=== PATIENT | male | born 1955 | race Caucasian/White ===

== ENCOUNTER 2021-07-07 17:05 | Inpatient (IN) | payer MEDICAID, SELFPAY ==
[~2021-07-07] VITALS: Ht 172.7 cm; Wt 93.3 kg
[2021-07-07] MEDS ORDERED: DexAMETHasone SOD PHOS 10MG/1ML VIAL INJ IV ONE (17:45)
[2021-07-07] MEDS ORDERED: cefTRIAXone 1GM/50ML D5W 50 ML IV ONE (17:45)
[2021-07-07 18:49] LABS: Basophils # (auto) 0.2 10 ^3/uL (0-0.2); Basophils % (auto) 2.6 % (0.0-2.0); Eosinophils # (auto) 0 10 ^3/uL (0-0.8); Hematocrit 49.5 % (41.0-53.0); Hemoglobin 16.8 g/dL (13.5-17.5); Lymphocytes # (auto) 0.6 10 ^3/uL (0.4-5.4); Lymphocytes % (auto) 8.8 % (10.0-50.0); Mean Corpuscular Hemoglobin 30.8 pg (28.0-32.0); Mean Corpuscular Hgb Conc. 33.9 g/dL (32.0-36.0); Mean Corpuscular Volume 90.9 fL (80.0-100.0); Monocytes # (auto) 0.5 10 ^3/uL (0-1.3); Monocytes % (auto) 7.7 % (0.0-12.0); Neutrophils # (auto) 5.6 10 ^3/uL (1.6-8.6); Neutrophils % (auto) 80.9 % (37.0-80.0); Nucleated Red Blood Cells % 0.2 %; Red Blood Cells 5.45 10^6/uL (4.5-5.90); Red Cell Distribution Width 13.4 % (11.8-14.3); White Blood Cell 6.9 10^3/uL (4.4-10.8)
[2021-07-07 19:05] LABS: Calcium 8.2 mg/dL (8.5-10.1); Chloride 102 mmol/L (98-107); Potassium 3.9 mmol/L (3.5-5.1); Sodium 135 mmol/L (136-145)
[2021-07-07 19:15] LABS: Alanine Aminotransferase 59 U/L (16-61); Albumin 2.8 g/dL (3.4-5.0); Alkaline Phosphatase 128 U/L (45-117); Anion Gap 11 (5-15); Aspartate Aminotransferase 55 U/L (15-37); BUN/Creatinine Ratio 20.4; Bilirubin, Total 1.2 mg/dL (0.2-1.0); Blood Urea Nitrogen 22 mg/dL (7-18); CRP High Sensitivity 4.29 mg/dL (< 0.3); Carbon Dioxide 22 mmol/L (21-32); GFR African American 89 mL/min; GFR Non-African American 73 mL/min; Glucose 95 mg/dL (74-106); Total Protein 7.2 g/dL (6.4-8.2)
[2021-07-07] MEDS ORDERED: TEMAZEPAM 15 MG CAP PO PRN (21:15)
[2021-07-07] MEDS ORDERED: NITROGLYCERIN 0.4 MG SL TAB SL PRN (21:15)
[2021-07-07] MEDS ORDERED: ONDANSETRON HCL 4 MG/2 ML VIAL IV PRN (21:15)
[2021-07-07] MEDS ORDERED: MORPHINE SULFATE INJECTION 2 MG/ML SYRG IV PRN (21:15)
[2021-07-07] MEDS ORDERED: AZITHROMYCIN 500MG/ 250ML 250 ML IV ONE (21:15)
[2021-07-07] MEDS ORDERED: ACETAMINOPHEN 500 MG TAB PO PRN (21:15)
[2021-07-07] MEDS: ENOXAPARIN SOD 40 MG/0.4 ML SYRINGE SC SCH (21:40)
[2021-07-08 00:38] VITALS: BP 125/71
[2021-07-08 05:15] LABS: Basophils # (auto) 0 10 ^3/uL (0-0.2); Basophils % (auto) 0.2 % (0.0-2.0); Eosinophils # (auto) 0 10 ^3/uL (0-0.8); Hematocrit 44.9 % (41.0-53.0); Hemoglobin 15.6 g/dL (13.5-17.5); Lymphocytes # (auto) 0.4 10 ^3/uL (0.4-5.4); Lymphocytes % (auto) 8.9 % (10.0-50.0); Mean Corpuscular Hemoglobin 31.4 pg (28.0-32.0); Mean Corpuscular Hgb Conc. 34.8 g/dL (32.0-36.0); Mean Corpuscular Volume 90.4 fL (80.0-100.0); Monocytes # (auto) 0.3 10 ^3/uL (0-1.3); Monocytes % (auto) 7.7 % (0.0-12.0); Neutrophils # (auto) 3.6 10 ^3/uL (1.6-8.6); Neutrophils % (auto) 83.2 % (37.0-80.0); Red Blood Cells 4.96 10^6/uL (4.5-5.90); Red Cell Distribution Width 12.8 % (11.8-14.3); White Blood Cell 4.3 10^3/uL (4.4-10.8)
[2021-07-08 05:26] LABS: Albumin 2.5 g/dL (3.4-5.0); Calcium 8.1 mg/dL (8.5-10.1); Potassium 3.9 mmol/L (3.5-5.1)
[2021-07-08 05:31] LABS: BUN/Creatinine Ratio 20.8; Bilirubin, Total 0.7 mg/dL (0.2-1.0); Total Protein 6.7 g/dL (6.4-8.2)
[2021-07-08] MEDS: DexAMETHasone SOD PHOS 10MG/1ML VIAL INJ IV SCH (09:34)
[2021-07-08] MEDS: ZINC SULFATE 220mg CAP or TAB PO SCH (09:34)
[2021-07-08] MEDS: ASCORBIC ACID 1,000 MG TAB PO SCH (09:34)
[2021-07-08] MEDS: ENOXAPARIN SOD 40 MG/0.4 ML SYRINGE SC SCH ×2 (09:35→22:55)
[2021-07-08] MEDS: CHOLECALCIFEROL (VITD3) 2,000 UNIT CAP/TAB PO SCH (09:35)
[2021-07-08] MEDS ORDERED: DexAMETHasone SOD PHOS 10MG/1ML VIAL INJ IV SCH (10:00)
[2021-07-08] MEDS ORDERED: POTASSIUM CHL 10 Meq TABLET PO ONE ×2 (16:00→17:26)
[2021-07-08] MEDS ORDERED: REMDESIVIR PER PHARMACY 0 ML IV SCH (16:00)
[2021-07-08] MEDS ORDERED: FUROSEMIDE 20 MG/2 ML VIAL IV ONE (16:00)
[2021-07-08] MEDS ORDERED: FUROSEMIDE 20 MG/2 ML VIAL ONE (17:25)
[2021-07-08] MEDS ORDERED: REMDESIVIR 200 MG in NS 210ml LOADING DOSE ADULT IV ONE (18:00)
[2021-07-08 22:00] VITALS: BP 116/70
[2021-07-08] MEDS ORDERED: AZITHROMYCIN 500MG/ 250ML 250 ML IV SCH (22:00)
[2021-07-08] MEDS: BUDESONIDE (INHALATION) 180 MCG IH IN SCH (22:11)
[2021-07-08] MEDS: FAMOTIDINE 20 MG TAB PO SCH (22:55)
[2021-07-08] MEDS: DOXYCYCLINE 100MG/250ML 250 ML IV SCH (22:55)
[2021-07-09 00:38] VITALS: BP 116/70
[2021-07-09] MEDS ORDERED: OMEP20TA PO (02:35)
[2021-07-09 05:00] VITALS: BP 107/65
[2021-07-09 06:29] LABS: Calcium 8.5 mg/dL (8.5-10.1); Potassium 3.7 mmol/L (3.5-5.1)
[2021-07-09 06:32] LABS: Albumin 2.4 g/dL (3.4-5.0); BUN/Creatinine Ratio 24.4
[2021-07-09 06:40] LABS: Bilirubin, Total 0.6 mg/dL (0.2-1.0); CRP High Sensitivity 2.27 mg/dL (< 0.3); Total Protein 6.3 g/dL (6.4-8.2)
[2021-07-09] MEDS: ALBUTEROL SULF HFA 90MCG INH 200DOSE IN PRN ×2 (06:52→22:18)
[2021-07-09] MEDS: BUDESONIDE (INHALATION) 180 MCG IH IN SCH ×2 (06:52→22:18)
[2021-07-09 09:00] VITALS: BP 94/62
[2021-07-09] MEDS: DexAMETHasone SOD PHOS 10MG/1ML VIAL INJ IV SCH (09:10)
[2021-07-09] MEDS: DOXYCYCLINE 100MG/250ML 250 ML IV SCH (09:11)
[2021-07-09] MEDS: ZINC SULFATE 220mg CAP or TAB PO SCH (09:11)
[2021-07-09] MEDS: CHOLECALCIFEROL (VITD3) 2,000 UNIT CAP/TAB PO SCH (09:12)
[2021-07-09] MEDS: POTASSIUM CHL 10 Meq TABLET PO SCH (09:12)
[2021-07-09] MEDS: ENOXAPARIN SOD 40 MG/0.4 ML SYRINGE SC SCH ×2 (09:12→21:37)
[2021-07-09] MEDS: FAMOTIDINE 20 MG TAB PO SCH ×2 (09:12→21:37)
[2021-07-09] MEDS: ASCORBIC ACID 1,000 MG TAB PO SCH (09:12)
[2021-07-09] MEDS: FUROSEMIDE 20 MG/2 ML VIAL IV SCH (09:13)
[2021-07-09] MEDS: ACETAMINOPHEN 500 MG TAB PO PRN ×2 (11:47→21:38)
[2021-07-09 13:00] VITALS: BP 104/69
[2021-07-09] MEDS ORDERED: PIPERACILLIN-TAZOB 3.375GM 100 ML IV ONE (13:30)
[2021-07-09] MEDS: REMDESIVIR 100mg 100 MG in SODIUM CHL 0.9% 230 ML IV SCH (15:28)
[2021-07-09 16:06] LABS: Urine Bacteria NONE SEEN /hpf (None Seen); Urine Blood Negative /uL (Negative); Urine Mucus FEW (None Seen); Urine Specific Gravity 1.014 (1.001-1.035); Urine WBC 1 /hpf (0 - 3)
[2021-07-09 17:00] VITALS: BP 111/71
[2021-07-09 22:06] VITALS: BP 107/73
[2021-07-10 05:00] VITALS: BP 117/69
[2021-07-10] MEDS: PIPERACILLIN-TAZOB 3.375GM 100 ML IV SCH ×4 (05:43→18:00)
[2021-07-10 05:50] LABS: Basophils # (auto) 0 10 ^3/uL (0-0.2); Basophils % (auto) 0.3 % (0.0-2.0); Eosinophils # (auto) 0 10 ^3/uL (0-0.8); Eosinophils % (auto) 0.2 % (0.0-7.0); Hematocrit 45.4 % (41.0-53.0); Hemoglobin 15.5 g/dL (13.5-17.5); Mean Corpuscular Hemoglobin 30.5 pg (28.0-32.0); Mean Corpuscular Hgb Conc. 34.2 g/dL (32.0-36.0); Monocytes # (auto) 0.8 10 ^3/uL (0-1.3); Neutrophils # (auto) 3.9 10 ^3/uL (1.6-8.6); Neutrophils % (auto) 68.5 % (37.0-80.0); Nucleated Red Blood Cells % 0.1 %; Red Cell Distribution Width 12.9 % (11.8-14.3); White Blood Cell 5.7 10^3/uL (4.4-10.8)
[2021-07-10] MEDS: ALBUTEROL SULF HFA 90MCG INH 200DOSE IN PRN ×2 (07:10→21:06)
[2021-07-10] MEDS: BUDESONIDE (INHALATION) 180 MCG IH IN SCH ×2 (07:11→21:06)
[2021-07-10 08:21] LABS: BUN/Creatinine Ratio 26.1; Potassium 3.5 mmol/L (3.5-5.1)
[2021-07-10 08:22] LABS: Albumin 2.4 g/dL (3.4-5.0); Bilirubin, Direct 0.4 mg/dL (0-0.2); Bilirubin, Total 0.8 mg/dL (0.2-1.0); Calcium 8.5 mg/dL (8.5-10.1); Total Protein 6.6 g/dL (6.4-8.2)
[2021-07-10 08:23] LABS: CRP High Sensitivity 1.61 mg/dL (< 0.3)
[2021-07-10 09:00] VITALS: BP 97/58
[2021-07-10] MEDS: DexAMETHasone SOD PHOS 10MG/1ML VIAL INJ IV SCH (09:55)
[2021-07-10] MEDS: CHOLECALCIFEROL (VITD3) 2,000 UNIT CAP/TAB PO SCH (09:56)
[2021-07-10] MEDS: FAMOTIDINE 20 MG TAB PO SCH ×2 (09:56→22:19)
[2021-07-10] MEDS: ASCORBIC ACID 1,000 MG TAB PO SCH (09:56)
[2021-07-10] MEDS: ZINC SULFATE 220mg CAP or TAB PO SCH (09:56)
[2021-07-10] MEDS: POTASSIUM CHL 10 Meq TABLET PO SCH (09:56)
[2021-07-10] MEDS: ENOXAPARIN SOD 40 MG/0.4 ML SYRINGE SC SCH ×2 (09:56→22:19)
[2021-07-10] MEDS: FUROSEMIDE 20 MG/2 ML VIAL IV SCH (09:56)
[2021-07-10] MEDS: ACETAMINOPHEN 500 MG TAB PO PRN ×2 (11:24→20:49)
[2021-07-10 13:00] VITALS: BP 104/62
[2021-07-10] MEDS: REMDESIVIR 100mg 100 MG in SODIUM CHL 0.9% 230 ML IV SCH (15:20)
[2021-07-10] MEDS: guaiFENesin-DM 100/10mg/5ml SYR PO PRN ×2 (16:18→20:48)
[2021-07-10 17:11] VITALS: BP 99/71
[2021-07-10 22:00] VITALS: BP 97/66
[2021-07-11] MEDS: PIPERACILLIN-TAZOB 3.375GM 100 ML IV SCH ×5 (00:08→23:49)
[2021-07-11 05:00] VITALS: BP 98/64
[2021-07-11 06:22] LABS: Basophils # (auto) 0 10 ^3/uL (0-0.2); Basophils % (auto) 0.2 % (0.0-2.0); Eosinophils # (auto) 0.1 10 ^3/uL (0-0.8); Eosinophils % (auto) 0.8 % (0.0-7.0); Hematocrit 44.4 % (41.0-53.0); Hemoglobin 15.8 g/dL (13.5-17.5); Mean Corpuscular Hemoglobin 31.9 pg (28.0-32.0); Mean Corpuscular Hgb Conc. 35.5 g/dL (32.0-36.0); Mean Corpuscular Volume 89.8 fL (80.0-100.0); Monocytes # (auto) 0.9 10 ^3/uL (0-1.3); Monocytes % (auto) 12.6 % (0.0-12.0); Neutrophils # (auto) 5.4 10 ^3/uL (1.6-8.6); Neutrophils % (auto) 72.4 % (37.0-80.0); Red Blood Cells 4.94 10^6/uL (4.5-5.90); Red Cell Distribution Width 12.9 % (11.8-14.3); White Blood Cell 7.5 10^3/uL (4.4-10.8)
[2021-07-11 06:43] LABS: Albumin 2.3 g/dL (3.4-5.0); BUN/Creatinine Ratio 19.8; Calcium 8.3 mg/dL (8.5-10.1); Potassium 3.4 mmol/L (3.5-5.1)
[2021-07-11 06:52] LABS: Bilirubin, Total 1.3 mg/dL (0.2-1.0); CRP High Sensitivity 1.35 mg/dL (< 0.3); Total Protein 6.2 g/dL (6.4-8.2)
[2021-07-11] MEDS: ALBUTEROL SULF HFA 90MCG INH 200DOSE IN PRN ×2 (08:28→20:54)
[2021-07-11] MEDS: BUDESONIDE (INHALATION) 180 MCG IH IN SCH ×3 (08:28→20:54)
[2021-07-11 09:00] VITALS: BP 91/52
[2021-07-11] MEDS: FUROSEMIDE 20 MG/2 ML VIAL IV SCH (10:00)
[2021-07-11] MEDS: DexAMETHasone SOD PHOS 10MG/1ML VIAL INJ IV SCH (10:14)
[2021-07-11] MEDS: POTASSIUM CHL 10 Meq TABLET PO SCH (10:14)
[2021-07-11] MEDS: ZINC SULFATE 220mg CAP or TAB PO SCH (10:14)
[2021-07-11] MEDS: ENOXAPARIN SOD 40 MG/0.4 ML SYRINGE SC SCH ×2 (10:15→21:17)
[2021-07-11] MEDS: ASCORBIC ACID 1,000 MG TAB PO SCH (10:15)
[2021-07-11] MEDS: FAMOTIDINE 20 MG TAB PO SCH ×2 (10:15→21:18)
[2021-07-11] MEDS: CHOLECALCIFEROL (VITD3) 2,000 UNIT CAP/TAB PO SCH (10:15)
[2021-07-11 13:00] VITALS: BP 107/71
[2021-07-11] MEDS: REMDESIVIR 100mg 100 MG in SODIUM CHL 0.9% 230 ML IV SCH (14:56)
[2021-07-11] MEDS ORDERED: POTASSIUM CHL 20 Meq TABLET PO ONE (15:00)
[2021-07-11] MEDS ORDERED: diphenhdrAMINE HCL 50 MG/1 ML VL IV PRN (15:00)
[2021-07-11 17:00] VITALS: BP 128/77
[2021-07-11 22:00] VITALS: BP 95/74
[2021-07-12] VITALS (8 sets, daily range): BP systolic 102–125; BP diastolic 63–73
[2021-07-12] MEDS: PIPERACILLIN-TAZOB 3.375GM 100 ML IV SCH ×4 (05:57→23:59)
[2021-07-12] MEDS: ALBUTEROL SULF HFA 90MCG INH 200DOSE IN PRN (06:33)
[2021-07-12] MEDS: BUDESONIDE (INHALATION) 180 MCG IH IN SCH ×2 (06:33→19:57)
[2021-07-12 06:38] LABS: Calcium 8.6 mg/dL (8.5-10.1); Magnesium 2.5 mg/dL (1.6-2.6); Potassium 3.6 mmol/L (3.5-5.1)
[2021-07-12 07:44] LABS: Albumin 2.5 g/dL (3.4-5.0); BUN/Creatinine Ratio 15.9; Total Protein 6.5 g/dL (6.4-8.2)
[2021-07-12] MEDS: DexAMETHasone SOD PHOS 10MG/1ML VIAL INJ IV SCH (10:39)
[2021-07-12] MEDS: FUROSEMIDE 20 MG/2 ML VIAL IV SCH (10:40)
[2021-07-12] MEDS: ZINC SULFATE 220mg CAP or TAB PO SCH (10:40)
[2021-07-12] MEDS: POTASSIUM CHL 10 Meq TABLET PO SCH (10:41)
[2021-07-12] MEDS: CHOLECALCIFEROL (VITD3) 2,000 UNIT CAP/TAB PO SCH (10:41)
[2021-07-12] MEDS: FAMOTIDINE 20 MG TAB PO SCH ×2 (10:41→21:17)
[2021-07-12] MEDS: ASCORBIC ACID 1,000 MG TAB PO SCH (10:41)
[2021-07-12] MEDS: ENOXAPARIN SOD 40 MG/0.4 ML SYRINGE SC SCH ×2 (10:41→21:17)
[2021-07-12] MEDS: REMDESIVIR 100mg 100 MG in SODIUM CHL 0.9% 230 ML IV SCH (14:38)
[2021-07-13 00:35] VITALS: BP 102/63
[2021-07-13 05:00] VITALS: BP 109/68
[2021-07-13] MEDS: PIPERACILLIN-TAZOB 3.375GM 100 ML IV SCH ×3 (05:42→17:46)
[2021-07-13] MEDS: ALBUTEROL SULF HFA 90MCG INH 200DOSE IN PRN ×2 (06:14→20:31)
[2021-07-13] MEDS: BUDESONIDE (INHALATION) 180 MCG IH IN SCH ×2 (06:14→20:31)
[2021-07-13 09:19] VITALS: BP 111/67
[2021-07-13] MEDS: DexAMETHasone SOD PHOS 10MG/1ML VIAL INJ IV SCH (10:32)
[2021-07-13] MEDS: ZINC SULFATE 220mg CAP or TAB PO SCH (10:32)
[2021-07-13] MEDS: POTASSIUM CHL 10 Meq TABLET PO SCH (10:32)
[2021-07-13] MEDS: FUROSEMIDE 20 MG/2 ML VIAL IV SCH (10:32)
[2021-07-13] MEDS: FAMOTIDINE 20 MG TAB PO SCH ×2 (10:33→21:36)
[2021-07-13] MEDS: CHOLECALCIFEROL (VITD3) 2,000 UNIT CAP/TAB PO SCH (10:33)
[2021-07-13] MEDS: ENOXAPARIN SOD 40 MG/0.4 ML SYRINGE SC SCH ×2 (10:33→21:36)
[2021-07-13] MEDS: ASCORBIC ACID 1,000 MG TAB PO SCH (10:33)
[2021-07-13 13:15] VITALS: BP 105/66
[2021-07-13 17:00] VITALS: BP 103/72
[2021-07-13 22:00] VITALS: BP 120/63
[2021-07-14] VITALS (7 sets, daily range): BP systolic 91–115; BP diastolic 45–68
[2021-07-14] MEDS: PIPERACILLIN-TAZOB 3.375GM 100 ML IV SCH ×4 (00:19→18:29)
[2021-07-14] MEDS: ALBUTEROL SULF HFA 90MCG INH 200DOSE IN PRN ×2 (07:24→20:02)
[2021-07-14] MEDS: BUDESONIDE (INHALATION) 180 MCG IH IN SCH ×2 (07:24→20:02)
[2021-07-14 07:27] LABS: Eosinophils # (auto) 0 10 ^3/uL (0-0.8); Hemoglobin 15.1 g/dL (13.5-17.5)
[2021-07-14 07:30] LABS: Basophils # (auto) 0.1 10 ^3/uL (0-0.2); Basophils % (auto) 0.9 % (0.0-2.0); Eosinophils % (auto) 0.2 % (0.0-7.0); Hematocrit 42.9 % (41.0-53.0); Lymphocytes # (auto) 1.4 10 ^3/uL (0.4-5.4); Lymphocytes % (auto) 17.1 % (10.0-50.0); Mean Corpuscular Hemoglobin 31.5 pg (28.0-32.0); Mean Corpuscular Hgb Conc. 35.1 g/dL (32.0-36.0); Mean Corpuscular Volume 89.6 fL (80.0-100.0); Monocytes % (auto) 12.5 % (0.0-12.0); Neutrophils # (auto) 5.6 10 ^3/uL (1.6-8.6); Neutrophils % (auto) 69.3 % (37.0-80.0); Nucleated Red Blood Cells % 0.1 %; Red Blood Cells 4.78 10^6/uL (4.5-5.90); Red Cell Distribution Width 12.8 % (11.8-14.3); White Blood Cell 8.1 10^3/uL (4.4-10.8)
[2021-07-14 07:43] LABS: Potassium 3.8 mmol/L (3.5-5.1)
[2021-07-14 07:46] LABS: CRP High Sensitivity 0.46 mg/dL (< 0.3)
[2021-07-14] MEDS: FUROSEMIDE 20 MG/2 ML VIAL IV SCH (10:00)
[2021-07-14] MEDS: DexAMETHasone SOD PHOS 10MG/1ML VIAL INJ IV SCH (10:29)
[2021-07-14] MEDS: POTASSIUM CHL 10 Meq TABLET PO SCH (10:30)
[2021-07-14] MEDS: ENOXAPARIN SOD 40 MG/0.4 ML SYRINGE SC SCH ×2 (10:30→21:49)
[2021-07-14] MEDS: ZINC SULFATE 220mg CAP or TAB PO SCH (10:30)
[2021-07-14] MEDS: ASCORBIC ACID 1,000 MG TAB PO SCH (10:30)
[2021-07-14] MEDS: CHOLECALCIFEROL (VITD3) 2,000 UNIT CAP/TAB PO SCH (10:30)
[2021-07-14] MEDS: FAMOTIDINE 20 MG TAB PO SCH ×2 (10:30→21:49)
[2021-07-15] VITALS (7 sets, daily range): BP systolic 95–113; BP diastolic 58–78
[2021-07-15] MEDS: PIPERACILLIN-TAZOB 3.375GM 100 ML IV SCH ×5 (00:03→23:46)
[2021-07-15 07:05] LABS: Potassium 4.2 mmol/L (3.5-5.1)
[2021-07-15 07:11] LABS: Albumin 2.4 g/dL (3.4-5.0); BUN/Creatinine Ratio 16.8; Bilirubin, Total 0.8 mg/dL (0.2-1.0); Calcium 8.6 mg/dL (8.5-10.1); Total Protein 6.2 g/dL (6.4-8.2)
[2021-07-15] MEDS: ALBUTEROL SULF HFA 90MCG INH 200DOSE IN PRN ×2 (07:15→19:17)
[2021-07-15] MEDS: BUDESONIDE (INHALATION) 180 MCG IH IN SCH ×2 (07:15→19:17)
[2021-07-15] MEDS: ZINC SULFATE 220mg CAP or TAB PO SCH (09:39)
[2021-07-15] MEDS: POTASSIUM CHL 10 Meq TABLET PO SCH (09:39)
[2021-07-15] MEDS: CHOLECALCIFEROL (VITD3) 2,000 UNIT CAP/TAB PO SCH (09:39)
[2021-07-15] MEDS: FAMOTIDINE 20 MG TAB PO SCH ×2 (09:39→21:44)
[2021-07-15] MEDS: ENOXAPARIN SOD 40 MG/0.4 ML SYRINGE SC SCH ×2 (09:40→21:45)
[2021-07-15] MEDS: DexAMETHasone SOD PHOS 10MG/1ML VIAL INJ IV SCH (09:40)
[2021-07-15] MEDS: ASCORBIC ACID 1,000 MG TAB PO SCH (09:41)
[2021-07-15] MEDS: FUROSEMIDE 20 MG/2 ML VIAL IV SCH (09:43)
[2021-07-15] MEDS ORDERED: TOCILIZUMAB 400 MG in SODIUM CHL 0.9% 80 ML IV ONE (15:00)
[2021-07-16 05:00] VITALS: BP 103/67
[2021-07-16] MEDS: PIPERACILLIN-TAZOB 3.375GM 100 ML IV SCH ×4 (05:29→22:44)
[2021-07-16] MEDS ORDERED: TOCILIZUMAB 400 MG in SODIUM CHL 0.9% 80 ML IV ONE (09:00)
[2021-07-16 09:13] VITALS: BP 94/62
[2021-07-16] MEDS: DexAMETHasone SOD PHOS 10MG/1ML VIAL INJ IV SCH (09:15)
[2021-07-16] MEDS: ZINC SULFATE 220mg CAP or TAB PO SCH (09:16)
[2021-07-16] MEDS: CHOLECALCIFEROL (VITD3) 2,000 UNIT CAP/TAB PO SCH (09:16)
[2021-07-16] MEDS: FAMOTIDINE 20 MG TAB PO SCH ×2 (09:16→22:43)
[2021-07-16] MEDS: ASCORBIC ACID 1,000 MG TAB PO SCH (09:16)
[2021-07-16] MEDS: POTASSIUM CHL 10 Meq TABLET PO SCH (09:16)
[2021-07-16] MEDS: ENOXAPARIN SOD 40 MG/0.4 ML SYRINGE SC SCH ×2 (09:17→22:44)
[2021-07-16] MEDS: ALBUTEROL SULF HFA 90MCG INH 200DOSE IN PRN ×2 (09:23→22:27)
[2021-07-16] MEDS: BUDESONIDE (INHALATION) 180 MCG IH IN SCH ×2 (09:24→22:27)
[2021-07-16] MEDS: FUROSEMIDE 20 MG/2 ML VIAL IV SCH (09:24)
[2021-07-16 12:54] VITALS: BP 107/57
[2021-07-16 17:15] VITALS: BP 115/71
[2021-07-16 22:49] VITALS: BP 106/63
[2021-07-17 05:00] VITALS: BP 102/64
[2021-07-17] MEDS: PIPERACILLIN-TAZOB 3.375GM 100 ML IV SCH ×4 (05:43→23:58)
[2021-07-17 06:11] LABS: Potassium 4.3 mmol/L (3.5-5.1)
[2021-07-17 06:18] LABS: Albumin 2.5 g/dL (3.4-5.0); Bilirubin, Direct 0.3 mg/dL (0-0.2); Bilirubin, Total 0.6 mg/dL (0.2-1.0); Total Protein 6.2 g/dL (6.4-8.2)
[2021-07-17] MEDS: DexAMETHasone SOD PHOS 10MG/1ML VIAL INJ IV SCH (08:35)
[2021-07-17] MEDS: POTASSIUM CHL 10 Meq TABLET PO SCH (08:35)
[2021-07-17] MEDS: ENOXAPARIN SOD 40 MG/0.4 ML SYRINGE SC SCH ×2 (08:35→21:31)
[2021-07-17] MEDS: FAMOTIDINE 20 MG TAB PO SCH ×2 (08:36→21:31)
[2021-07-17] MEDS: CHOLECALCIFEROL (VITD3) 2,000 UNIT CAP/TAB PO SCH (08:36)
[2021-07-17] MEDS: ASCORBIC ACID 1,000 MG TAB PO SCH (08:36)
[2021-07-17] MEDS: ZINC SULFATE 220mg CAP or TAB PO SCH (08:36)
[2021-07-17] MEDS: FUROSEMIDE 20 MG/2 ML VIAL IV SCH (08:36)
[2021-07-17 09:00] VITALS: BP 113/74
[2021-07-17] MEDS: BUDESONIDE (INHALATION) 180 MCG IH IN SCH ×2 (10:38→22:28)
[2021-07-17] MEDS: ALBUTEROL SULF HFA 90MCG INH 200DOSE IN PRN ×2 (10:38→22:28)
[2021-07-17 12:58] VITALS: BP 118/71
[2021-07-17 17:00] VITALS: BP 109/72
[2021-07-17 22:00] VITALS: BP 104/69
[2021-07-18 05:30] VITALS: BP 97/50
[2021-07-18] MEDS: PIPERACILLIN-TAZOB 3.375GM 100 ML IV SCH (05:47)
[2021-07-18 05:49] LABS: Basophils # (auto) 0.1 10 ^3/uL (0-0.2); Eosinophils # (auto) 0.1 10 ^3/uL (0-0.8); Eosinophils % (auto) 0.6 % (0.0-7.0); Lymphocytes # (auto) 1.8 10 ^3/uL (0.4-5.4); Mean Corpuscular Volume 90.8 fL (80.0-100.0); Monocytes # (auto) 0.9 10 ^3/uL (0-1.3); White Blood Cell 8.8 10^3/uL (4.4-10.8)
[2021-07-18 05:51] LABS: Basophils % (auto) 1.1 % (0.0-2.0); Hematocrit 45.3 % (41.0-53.0); Hemoglobin 15.3 g/dL (13.5-17.5); Lymphocytes % (auto) 20.1 % (10.0-50.0); Mean Corpuscular Hemoglobin 30.6 pg (28.0-32.0); Mean Corpuscular Hgb Conc. 33.8 g/dL (32.0-36.0); Monocytes % (auto) 9.9 % (0.0-12.0); Neutrophils % (auto) 68.3 % (37.0-80.0)
[2021-07-18 06:21] LABS: CRP High Sensitivity 0.07 mg/dL (< 0.3); Calcium 8.8 mg/dL (8.5-10.1)
[2021-07-18 06:23] LABS: BUN/Creatinine Ratio 21.7
[2021-07-18] MEDS: ALBUTEROL SULF HFA 90MCG INH 200DOSE IN PRN (06:59)
[2021-07-18] MEDS: BUDESONIDE (INHALATION) 180 MCG IH IN SCH (06:59)
[2021-07-18 08:00] VITALS: BP 102/71
[2021-07-18 09:00] VITALS: BP 102/71
[2021-07-18] MEDS: CHOLECALCIFEROL (VITD3) 2,000 UNIT CAP/TAB PO SCH (09:33)
[2021-07-18] MEDS: DexAMETHasone SOD PHOS 10MG/1ML VIAL INJ IV SCH (09:33)
[2021-07-18] MEDS: ZINC SULFATE 220mg CAP or TAB PO SCH (09:33)
[2021-07-18] MEDS: POTASSIUM CHL 10 Meq TABLET PO SCH (09:33)
[2021-07-18] MEDS: FAMOTIDINE 20 MG TAB PO SCH (09:33)
[2021-07-18] MEDS: ASCORBIC ACID 1,000 MG TAB PO SCH (09:34)
[2021-07-18] MEDS: FUROSEMIDE 20 MG/2 ML VIAL IV SCH (10:26)
[2021-07-18] MEDS: ENOXAPARIN SOD 40 MG/0.4 ML SYRINGE SC SCH (10:26)
[2021-07-18] MEDS ORDERED: OMEP20TA PO (12:09)
[2021-07-18] MEDS ORDERED: DEX4T PO (12:09)
[2021-07-18] MEDS ORDERED: ASPI-378 PO (12:09)
[2021-07-18] MEDS ORDERED: CHOL20007 PO (12:09)
[2021-07-18] MEDS ORDERED: ASCO10003 PO (12:09)
[2021-07-18] MEDS ORDERED: ALBUAER3 IN (12:09)
[2021-07-18] MEDS ORDERED: ZINC220T6 PO (12:09)
[2021-07-18] MEDS ORDERED: DOXY-286 PO (12:09)
[2021-07-18] MEDS ORDERED: BUDE2SUS3 IN (12:09)
[2021-07-18 13:00] VITALS: BP 94/58
[2021-07-18 17:00] VITALS: BP 119/85
[2021-07-18 17:21] VITALS: BP 119/85
== END 2021-07-18 18:15 | disposition home or self-care (01) | DRG 720 ==
LOC: ER 17:05 → EDBD 17:05 → TELE 21:09 → TELE-EAST 07-08 21:30
PROVIDERS: ADMIT Nurse Practitioner; ATTEND Internal Medicine
PROC: XW033E5 Introduction of Remdesivir Anti-infective into Peripheral Vein, Percutaneous Approach, New Technology Group 5 (ICD-10-PCS; 2021-07-08)
PROC: XW13325 Transfusion of Convalescent Plasma (Nonautologous) into Peripheral Vein, Percutaneous Approach, New Technology Group 5 (ICD-10-PCS; principal; 2021-07-12)
PROC: XW033H5 Introduction of Tocilizumab into Peripheral Vein, Percutaneous Approach, New Technology Group 5 (ICD-10-PCS; 2021-07-15)
DX: A41.89 Other specified sepsis (principal); J96.01 Acute respiratory failure with hypoxia; J12.82 Pneumonia due to coronavirus disease 2019; U07.1 COVID-19; D89.839 Cytokine release syndrome, grade unspecified; E88.09 Other disorders of plasma-protein metabolism, not elsewhere classified; E66.9 Obesity, unspecified; E55.9 Vitamin D deficiency, unspecified; E78.5 Hyperlipidemia, unspecified; Z68.30 Body mass index [BMI] 30.0-30.9, adult
CPT/HCPCS: 36415; 36600; 71045; 71250; 80048; 80053; 80061; 80076; 81001; 82306; 82728; 82805; 83605; 83615; 83735; 83880; 84132; 84484; 85025; 85379; 85610; 86141; 86850; 86900; 86901; 87426; 93005; 93970; 94640; 96365; 96366; 96367; 96368; 96375; 97116; 97530; 99291; G0378; J0696; J1100; J2543; J3490

== ENCOUNTER 2023-02-03 08:23 | Emergency (ER) | payer MEDICARE, MEDICAID ==
[~2023-02-03] VITALS: Ht 172.7 cm; Wt 96.7 kg
[~2023-02-03 08:23] MED LIST: ALBUAER3 IN; ASCO10003 PO; BUDE2SUS3 IN; DEX4T PO; DOXY-286 PO; OMEP20TA PO; ZINC220T6 PO
[2023-02-03 09:18] VITALS: BP 109/71
== END 2023-02-03 15:17 | disposition left against medical advice (07) ==
LOC: ER 08:23
DX: H53.2 Diplopia (principal)
CPT/HCPCS: 70450

== ENCOUNTER → 2023-02-09 | Outpatient (CLI) | payer MEDICARE, MEDICAID | END | disposition home or self-care (01) | LOC: XYW 15:59 | PROVIDERS: ATTEND Psychiatry & Neurology Neurology | DX: Z63.9 Problem related to primary support group, unspecified (principal) | CPT/HCPCS: 93886 ==